=== PATIENT | female | born 1995 | race Caucasian/White ===

== ENCOUNTER 2018-12-05 00:25 | Emergency (ER) | payer OTHER ==
[2018-12-05 00:49] LABS: MUDS CUTOFF CONCENTRATIONS CUTOFF CONC BELOW:
[2018-12-05 00:53] LABS: HCG UR QUAL NEGATIVE
--- NOTE | 2018-12-05 00:57 | ED Physician Documentation ---
PD HPI MHE - Stated complaint Stated Complaint: MHE - Chief complaint Chief Complaint: Laceration - History obtained from History obtained from: Patient - History of Present Illness Primary symptom: Depression, Anxiety Timing - onset: Chronic Pain level now: 0 - Additional information Additional information: BIBA for increasing anxiety and depression. She was started on Cymbalta approximately 1 month ago and she says that had been helping with symptoms but past 1-2 days has had increasing anxiety that is no longer adequately controlled with the cymbalta, as well as with klonopin (she has PRN klonopin which she uses sparingly but no better with 2 doses today). She self-inflicted superficial abrasions with a knife to her left wrist earlier today. Review of Systems Cardiac: reports: Reviewed and negative Respiratory: reports: Reviewed and negative GI: reports: Reviewed and negative Skin: reports: Abrasion (s) Musculoskeletal: reports: Reviewed and negative Neurologic: reports: Reviewed and negative Psychiatric: reports: Anxiety. denies: Suicidal, Homicidal, Hallucinations, Delusions PD PAST MEDICAL HISTORY - Past Medical History Past Medical History: Yes Psych: Depression, Anxiety - Past Surgical History Past Surgical History: No - Present Medications Home Medications: Ambulatory Orders Medication Instructions Recorded Confirmed clonazePAM [Clonazepam] 0.5 mg PO TID PRN #15 tablet 12/05/18 - Allergies Allergies/Adverse Reactions: Allergies Allergy/AdvReac Type Severity Reaction Status Date / Time No Known Drug Allergies Allergy Verified 12/05/18 00:31 - Social History Does the pt smoke?: No Smoking Status: Never smoker Does the pt drink ETOH?: No Does the pt have substance abuse?: No - Immunizations Immunizations are current?: Yes - POLST Patient has POLST: No PD ED PE NORMAL - Vitals Vital signs reviewed: Yes - General General: Alert and oriented X 3, Well developed/nourished, Other (appears anxious and is tearful at times during H+P) - HEENT HEENT: PERRL, EOMI - Cardiac Cardiac: RRR, No murmur - Respiratory Respiratory: No respiratory distress, Clear bilaterally - Abdomen Abdomen: Soft, Non tender - Derm Derm: Other (left wrist (volar surface): multiple faint, linear superficial abrasions) - Extremities Extremities: No tenderness to palpate, Normal ROM s pain - Neuro Neuro: Alert and oriented X 3 Results - Vitals Vitals: Vital Signs - 24 hr 12/05/18 10:41 Temperature 36.7 C Heart Rate 72 Respiratory 14 Rate Blood Pressure 131/90 H O2 Saturation 100 Oxygen O2 Source Room air - Labs Labs: Laboratory Tests 12/05/18 12/05/18 12/05/18 00:40 00:40 00:54 WBC 9.6 RBC 4.25 Hgb 13.8 Hct 41.7 MCV 98.1 MCH 32.5 H MCHC 33.1 RDW 13.0 Plt Count 261 MPV 10.0 Neut # (Auto) 5.7 Lymph # (Auto) 2.4 Wallace # (Auto) 0.7 Eos # (Auto) 0.7 Baso # (Auto) 0.1 Absolute Nucleated RBC 0.00 Nucleated RBC % 0.0 Sodium Potassium Chloride Carbon Dioxide Anion Gap BUN Creatinine Estimated GFR (MDRD) Glucose Calcium Ur Specific [place] <=1.005 Urine HCG, Qual NEGATIVE Urine Opiates Screen NEGATIVE Ur Oxycodone Screen NEGATIVE Urine Methadone Screen NEGATIVE Ur Propoxyphene Screen NEGATIVE Ur Barbiturates Screen NEGATIVE Ur Tricyclics Screen NEGATIVE Ur Phencyclidine Scrn NEGATIVE Ur Amphetamine Screen NEGATIVE U Methamphetamines Scrn NEGATIVE U Benzodiazepines Scrn NEGATIVE Urine Cocaine Screen NEGATIVE U Cannabinoids Screen NEGATIVE Ethyl Alcohol 12/05/18 00:54 WBC RBC Hgb Hct MCV MCH MCHC RDW Plt Count MPV Neut # (Auto) Lymph # (Auto) Wallace # (Auto) Eos # (Auto) Baso # (Auto) Absolute Nucleated RBC Nucleated RBC % Sodium 142 Potassium 3.6 Chloride 107 Carbon Dioxide 22 Anion Gap 13.0 BUN 14 Creatinine 0.9 Estimated GFR (MDRD) 76 L Glucose 89 Calcium 9.0 Ur Specific [place] Urine HCG, Qual Urine Opiates Screen Ur Oxycodone Screen Urine Methadone Screen Ur Propoxyphene Screen Ur Barbiturates Screen Ur Tricyclics Screen Ur Phencyclidine Scrn Ur Amphetamine Screen U Methamphetamines Scrn U Benzodiazepines Scrn Urine Cocaine Screen U Cannabinoids Screen Ethyl Alcohol 47.3 PD MEDICAL DECISION MAKING - ED course Complexity details: reviewed results, re-evaluated patient, considered differential, d/w patient ED course: anxious and pacing early in ED stay, declined lorazepam initially but eventually was agreeable and she was able to sleep for a few hours. Awaiting MHE evaluation Departure - Departure Disposition: 01 Home, Self Care Clinical Impression: Anxiety Condition: Good Instructions: ED Panic Attack Follow-Up: Leydi La MD [Primary Care Provider] - Within 3 Days Prescriptions: clonazePAM [Clonazepam] 0.5 mg PO TID PRN #15 tablet PRN Reason: Anxiety Comments: Follow-up with your doctor for further care. Return if you worsen. You should see your doctor this week. Do not drive or operate heavy machinery while taking the benzodiazepines Crisis Line and is available to talk to someone [email or web address] is also available to chat with someone online if you prefer. There are also many resources on this website and apps for your phone to help with your mental health You can also text the word START to [phone] to chat with someome via text. Forms: Activity restrictions Discharge Date/Time: 12/05/18 10:46
[2018-12-05 00:58] LABS: BASOPHILS # (AUTO) 0.1 10^3/uL (0.0-0.1); BASOPHILS % (AUTO) 0.9 %; EOSINOPHILS # (AUTO) 0.7 10^3/uL (0.0-0.7); EOSINOPHILS % (AUTO) 7.3 %; HGB - HEMOGLOBIN 13.8 g/dL (12.0-16.0); LYMPHOCYTES # (AUTO) 2.4 10^3/uL (1.5-3.5); LYMPHOCYTES % (AUTO) 24.7 %; MEAN CORPUSCULAR HEMOGLOBIN 32.5 pg (27.0-31.0); MEAN CORPUSCULAR HGB CONC 33.1 g/dL (32.0-36.0); MEAN CORPUSCULAR VOLUME 98.1 fL (81.0-99.0); MONOCYTES # (AUTO) 0.7 10^3/uL (0.0-1.0); MONOCYTES % (AUTO) 7.3 %; NEUTROPHILS # (AUTO) 5.7 10^3/uL (1.5-6.6); NEUTROPHILS % (AUTO) 59.3 %; PLT - PLATELET COUNT 261 10^3/uL (130-450); RED BLOOD COUNT 4.25 10^6/uL (4.20-5.40); WHITE BLOOD COUNT 9.6 x10^3/uL (4.8-10.8)
[2018-12-05 01:07] LABS: CREATININE 0.9 mg/dL (0.4-1.0)
[2018-12-05 01:11] LABS: AMPHETAMINE SCREEN,URINE NEGATIVE (NEGATIVE); BENZODIAZEPINES SCREEN, URINE NEGATIVE (NEGATIVE); COCAINE SCREEN URINE NEGATIVE (NEGATIVE); METHADONE SCREEN, URINE NEGATIVE (NEGATIVE); METHAMPHETAMINES SCREEN, URINE NEGATIVE (NEGATIVE); OPIATE SCREEN, URINE NEGATIVE (NEGATIVE); OXYCODONE SCREEN, URINE NEGATIVE (NEGATIVE); PROPOXYPHENE SCREEN, URINE NEGATIVE (NEGATIVE); TRICYCLIC ANTIDEPRESSANT,URINE NEGATIVE (NEGATIVE)
[2018-12-05] MEDS ORDERED: LORazepam 0.5 MG TABLET PO STA (05:46)
[2018-12-05] MEDS ORDERED: clonazePAM 0.5 MG TABLET PO STA (09:48)
--- NOTE | 2018-12-05 10:31 | ED Physician Documentation ---
ED Addendum - Addendum Addendum: 12/05/18 10:29 Telepsychiatry - Dr. Echavarria, recommends treatment with klonopin 0.5mg PO TID and follow up with PCP, therapist this week. Patient comfortable with this plan. Patient counseled regarding signs and symptoms for which I believe and urgent re-evaluation would be necessary. Patient with good understanding of and agreement to plan and is comfortable going home at this time This document was made in part using voice recognition software. While efforts are made to proofread this document, sound alike and grammatical errors may occur. Departure - Departure Disposition: Home, Self Care Clinical Impression: Anxiety Condition: Good Instructions: ED Panic Attack Follow-Up: Leydi La MD [Primary Care Provider] - Within 3 Days Prescriptions: clonazePAM [Clonazepam] 0.5 mg PO TID PRN #15 tablet PRN Reason: Anxiety Comments: Follow-up with your doctor for further care. Return if you worsen. You should see your doctor this week. Do not drive or operate heavy machinery while taking the benzodiazepines Crisis Line and is available to talk to someone [email or web address] is also available to chat with someone online if you prefer. There are also many resources on this website and apps for your phone to help with your mental health You can also text the word START to [phone] to chat with someome via text. Forms: Activity restrictions
[2018-12-05 10:47] VITALS: BP 131/90
== END 2018-12-05 10:46 | disposition home or self-care (01) ==
LOC: EDBD → ED 00:25
DX: F41.9 Anxiety disorder, unspecified (principal); S60.812A Abrasion of left wrist, initial encounter; X78.1XXA Intentional self-harm by knife, initial encounter
CPT/HCPCS: 36415; 80048; 80320; 81025; 85025; 99283; 99284; A9270; Q3014; 80306